=== PATIENT | female | born 1955 | race African-American/Black ===

== ENCOUNTER 2018-12-05 13:00 | Emergency (ER) | payer MEDICARE, MEDICAID ==
[~2018-12-05] VITALS: Ht 165.1 cm; Wt 54.0 kg
[~2018-12-05 13:00] MED LIST: ALPR0.5T PO; ESOM20CA PO; HYDR-523 PO; OXYC5CAP12 PO; QUET25TA PO; SERT25TA PO
[2018-12-05 13:15] VITALS: BP 134/85
== END 2018-12-05 15:00 | disposition left against medical advice (07) ==
LOC: ER 14:37
DX: Z53.21 Procedure and treatment not carried out due to patient leaving prior to being seen by health care provider (principal)